=== PATIENT | male | born 1975 | race Caucasian/White ===

== ENCOUNTER 2018-08-08 21:10 | Outpatient (REF) | payer MEDICAID, SELFPAY ==
[2018-08-08 21:57] LABS: Abs Immature Grans 0.02 k/cumm (0.0-0.09); Absolute Basophil Count 0.02 k/cumm (0.0-0.2); Absolute Eosinophil Count 0.03 k/cumm (0.0-0.7); Absolute Lymphocyte Count 1.03 k/cumm (1.2-3.4); Absolute Monocyte Count 0.54 k/cumm (0.11-0.7); Absolute Neutrophil Count 3.83 k/cumm (1.2-6.7); Basophils % 0.4; Eosinophils % 0.5; HCT 44.8 % (40.0-50.0); HGB 15.6 g/dL (13.5-17.5); Immature Grans % 0.4; Lymphocytes % 18.8; Mean Corp. HGB Concentration 34.8 g/dL (32.0-36.0); Mean Corpuscular Hemoglobin 30.4 pg (27.0-33.0); Mean Corpuscular Volume 87.3 fL (80-95); Mean Platelet Volume 12.4 fL (8.0-11.0); Monocytes % 9.9; Platelet Count 154 x1000/uL (130-400); RBC 5.13 m/cumm (4.50-6.00); RBC Distribution Width 12.1 % (11.8-14.1); White Blood Cell Count 5.47 k/cumm (4.4-10.8)
[2018-08-08 22:33] LABS: ALT 34 U/L (12-78); AST 18 U/L (15-37); Albumin 3.9 g/dL (3.4-5.0); Alkaline Phosphatase 85 U/L (46-116); Anion Gap 11.6 mmol/L (3-11); BUN 6 mg/dL (7-18); Bilirubin, Total 0.7 mg/dL (0.2-1.0); CO2 26.4 mmol/L (21.0-32.0); CREATININE 0.87 mg/dL (0.70-1.30); Calcium 9.1 mg/dL (8.5-10.1); Chloride 100 mmol/L (98-107); Glucose 257 mg/dL (70-100); Lipase 142 U/L (73-393); Potassium 3.8 mmol/L (3.5-5.1); Sodium 138 mmol/L (136-145); Total Protein 7.8 g/dL (6.4-8.2)
[2018-08-08 22:55] LABS: GGT 85 U/L (15-85)
== END 2018-08-08 21:30 ==
LOC: NCHCN 21:10
PROVIDERS: PCP Specialist/Technologist Athletic Trainer; Visit Provider Specialist/Technologist Athletic Trainer
DX: R10.84 Generalized abdominal pain (principal); R73.9 Hyperglycemia, unspecified
CPT/HCPCS: 80053; 83690; 82977; 83036; 85025

== ENCOUNTER 2018-08-11 11:16 | Outpatient (CLI) | payer MEDICAID, SELFPAY ==
--- NOTE | 2018-08-11 12:15 | DIABASSESS_ITS ---
DESCRIPTION/ASSESSMENT: Toby Ann presents for diabetes self management with newly diagnosed type 2 diabetes with symptoms of thirst, frequent urination, fatigue, blurred vision. He was quenching his thirst with soda, juice, 1/2 gallon whole milk and beer. He is here to learn what he can do to manage his symptoms. Prior to coming today he had a burrito. NUTRITION: eats sporadically. Last night he made stir leo to increase vegetables. Generally he does not cook meals for himself. He does say he has acid reflux and has been vomiting after eating. BMI 27 PHYSICAL ACTIVITY: He is moving and lifting all day long, however he does not do regular planned exercise. MEDICATION: It sounds like he was prescribed sulfonylurea. He does not know the name or dosage. STRESS: He reports extreme stress with work especially. INTERVENTION: DSME is provided in the following AADE 7 areas based on patients interest and assessment of needs: Food Guidelines - reviewed diabetes food guide focused on non-carbohydrate foods. Medication - discussed other medications if this does not correct his hyperglycemia. Reviewed oral and possibility of injectables if even for a short time. Monitoring - he brought in his glucometer and was able to return demonstration with random blood sugar 369mg/dl today. Reviewed monitoring pattern for meaning and he agrees to begin testing before each meal and bed to see pattern of elevated blood sugars. Coping - He does not see a lessening of stress at this time. ACTION PLAN: He will consider carbohydrate and focus on meals around meat and vegetables. monitor blood sugars as discussed Individual MNT __4__ units billed TIME IN: 1215 OUT: 1325 No DM group education series being offered at this time.
== END 2018-08-11 11:36 ==
PROVIDERS: PCP Specialist/Technologist Athletic Trainer; Visit Provider Dietitian, Registered
DX: E11.9 Type 2 diabetes mellitus without complications (principal); Z71.3 Dietary counseling and surveillance
CPT/HCPCS: 97802

== ENCOUNTER 2018-11-13 10:25 | Outpatient (REF) | payer MEDICAID, SELFPAY ==
[2018-11-13 13:22] LABS: Calculated LDL 107 mg/dL; Cholesterol 177 mg/dL (50-200); HDL Cholesterol 49 mg/dL (40-60); Triglyceride 107 mg/dL (30-150)
== END 2018-11-13 10:45 ==
LOC: NCHCN 10:25
PROVIDERS: PCP Specialist/Technologist Athletic Trainer; Visit Provider Specialist/Technologist Athletic Trainer
DX: E11.65 Type 2 diabetes mellitus with hyperglycemia (principal)
CPT/HCPCS: 80061

== ENCOUNTER 2019-12-17 00:44 | Outpatient (CLI) | payer MEDICAID, SELFPAY ==
--- NOTE | 2019-12-17 | DI.US_ITS ---
EXAM: US SOFT TISS ABD WALL/LOW BACK CLINICAL HISTORY: LUMP RT SIDE OF BACK,R22.9 TECHNIQUE: Ultrasound performed using standard protocol. COMPARISON: No exams were available for comparison FINDINGS: Ultrasound examination was performed in the lumbar region to evaluate a palpable abnormality at the s ite of a recent injury. There is a 26 x 21 x 5 millimeter in diameter mildly heterogeneous low echog enicity horizontally oriented mass, the findings are consistent with hematoma. Other etiologies including neoplastic process are not excluded on the basis of this examination alone . Please correlate clinically and if there are any suspicious clinical indications additional CT or region could be obtained. IMPRESSION: DATA REPOSITORY:
== END 2019-12-17 01:04 ==
PROVIDERS: PCP Specialist/Technologist Athletic Trainer; Visit Provider Nurse Practitioner Family
DX: R22.2 Localized swelling, mass and lump, trunk (principal)
CPT/HCPCS: 76705

== ENCOUNTER 2021-08-13 12:50 | Emergency (ER) | payer MEDICAID, SELFPAY | END 2021-08-13 13:05 | LOC: ER 13:05 | PROVIDERS: PCP Specialist/Technologist Athletic Trainer | DX: Z53.21 Procedure and treatment not carried out due to patient leaving prior to being seen by health care provider (principal) ==